=== PATIENT | female | born 1970 | race Caucasian/White ===

== ENCOUNTER 2017-12-03 13:24 | Inpatient (IN) | payer BC, OTHER ==
[2017-12-03 14:21] LABS: ADD MAN DIFF? NO
[2017-12-03 14:24] LABS: BASO # 0.1 x10^3/uL (0.0-0.2); BASO % 1 % (0-3); EOS # 0.1 x10^3/uL (0.0-0.7); EOS % 2 % (0-3); HEMATOCRIT 36.1 % (36.0-47.0); HEMOGLOBIN 11.6 g/dL (12.0-15.5); LYMPH # 1.9 x10^3/uL (1.0-4.8); LYMPH % 33 % (24-48); MEAN CORPUSCULAR HEMOGLOBIN 26 pg (25-35); MEAN CORPUSCULAR HGB CONC 32 g/dL (31-37); MEAN CORPUSCULAR VOLUME 82 fL (79-100); MONO # 0.5 x10^3/uL (0.0-1.1); MONO % 8 % (0-9); NEUT # 3.3 x10^3uL (1.8-7.7); NEUT % 56 % (31-73); PLATELET COUNT 211 x10^3/uL (140-400); RED BLOOD COUNT 4.43 x10^6/uL (3.50-5.40); RED CELL DISTRIBUTION WIDTH 15.2 % (11.5-14.5); WHITE BLOOD COUNT 5.8 x10^3/uL (4.0-11.0)
[2017-12-03 14:37] LABS: INR 1.1 (0.8-1.1); PROTHROMBIN TIME PATIENT 13.9 SEC (11.7-14.0)
[2017-12-03 14:40] LABS: ANION GAP 8 (6-14); BLOOD UREA NITROGEN 13 mg/dL (7-20); BUN/CREATININE RATIO 22 (6-20); CALCIUM 8.5 mg/dL (8.5-10.1); CARBON DIOXIDE 26 mmol/L (21-32); CHLORIDE 104 mmol/L (98-107); CREATININE 0.6 mg/dL (0.6-1.0); GFR 106.3; GLUCOSE 87 mg/dL (70-99); POTASSIUM 4.1 mmol/L (3.5-5.1); SODIUM 138 mmol/L (136-145)
[2017-12-03 14:47] LABS: TROPONINI < 0.017 ng/mL (0.000-0.055)
[2017-12-03] MEDS: ASPIRIN CHEWABLE 81 MG TABLET. PO (14:48)
[2017-12-03] MEDS: IV NORMAL SALINE 1000ML BAG 1,000 ML IV ×2 (14:48→21:18)
[2017-12-03 14:50] LABS: ALBUMIN 3.4 g/dL (3.4-5.0); ALK PHOS 77 U/L (46-116); ALT (SGPT) < 6 U/L (14-59); AST (SGOT) 22 U/L (15-37); MAGNESIUM 1.8 mg/dL (1.8-2.4); TOTAL BILIRUBIN 0.6 mg/dL (0.2-1.0); TOTAL PROTEIN 6.7 g/dL (6.4-8.2)
[2017-12-03] MEDS: NITROGLYCERIN SUBLINGUAL 0.4 MG BOTTLE OF 25. SL (14:51)
[2017-12-03 14:52] LABS: THYROID STIM HORMONE (TSH) 0.792 uIU/mL (0.358-3.74)
[2017-12-03 14:53] LABS: CKMB INDEX 0.9 % (0-4); CKMB MASS < 0.5 ng/mL (0.0-3.6); CREATINE KINASE 57 U/L (26-192)
[2017-12-03 14:53] LABS: NT-PRO BNP 232 pg/mL (0-124)
[2017-12-03 14:55] LABS: BILIRUBIN,URINE NEGATIVE (NEG); CLARITY,URINE CLEAR; COLOR,URINE YELLOW; GLUCOSE,URINE NEGATIVE (NEG); NITRITE,URINE NEGATIVE (NEG); PH,URINE 6.5; PROTEIN,URINE NEGATIVE (NEG-TRACE); UROBILINOGEN,URINE 0.2 mg/dL (0.2 mg/dL)
[2017-12-03 15:07] LABS: BARBITURATES NEG (NEG); BENZODIAZEPINES NEG (NEG); CANNABINOIDS NEG (NEG); COCAINE NEG (NEG); METHADONE NEG (NEG); OPIATES NEG (NEG); PHENCYCLIDINE NEG (NEG)
[2017-12-03 15:19] LABS: AMPHETAMINE/METHAMPHETAMINE NEG (NEG); ETHANOL, URINE NEG (NEG)
[2017-12-03 15:20] LABS: BACTERIA,URINE 0 /HPF (0-FEW); RBC,URINE OCC /HPF (0-2); SQUAMOUS EPITHELIAL CELL,UR MOD /LPF; WBC,URINE RARE /HPF (0-4)
[2017-12-03] MEDS ORDERED: IV NORMAL SALINE 1000ML BAG 1,000 ML IV (15:26)
[2017-12-03] MEDS ORDERED: ONDANSETRON PF 4 MG/2 ML VIAL. IV (15:30)
[2017-12-03 18:55] LABS: TROPONINI < 0.017 ng/mL (0.000-0.055)
[2017-12-03] MEDS ORDERED: ALBUTEROL SULFATE 2.5 MG/3 ML NEBU. NEB (20:30)
[2017-12-03 20:43] LABS: POC GLUCOSE 100 mg/dL (70-99)
[2017-12-03] MEDS: ACETAMINOPHEN 325 MG TABLET. PO (21:17)
[2017-12-03 22:39] LABS: TROPONINI < 0.017 ng/mL (0.000-0.055)
[2017-12-04] MEDS: IV NORMAL SALINE 1000ML BAG 1,000 ML IV ×2 (05:44→16:30)
[2017-12-04 05:57] LABS: ADD MAN DIFF? NO
[2017-12-04 06:00] LABS: BASO % 1 % (0-3); EOS # 0.1 x10^3/uL (0.0-0.7); EOS % 2 % (0-3); HEMATOCRIT 33.5 % (36.0-47.0); HEMOGLOBIN 10.8 g/dL (12.0-15.5); LYMPH # 1.7 x10^3/uL (1.0-4.8); LYMPH % 41 % (24-48); MEAN CORPUSCULAR HEMOGLOBIN 26 pg (25-35); MEAN CORPUSCULAR HGB CONC 32 g/dL (31-37); MEAN CORPUSCULAR VOLUME 82 fL (79-100); MONO # 0.3 x10^3/uL (0.0-1.1); MONO % 8 % (0-9); NEUT % 48 % (31-73); PLATELET COUNT 182 x10^3/uL (140-400); RED BLOOD COUNT 4.11 x10^6/uL (3.50-5.40); RED CELL DISTRIBUTION WIDTH 15.4 % (11.5-14.5); WHITE BLOOD COUNT 4.2 x10^3/uL (4.0-11.0)
[2017-12-04 06:30] LABS: ANION GAP 7 (6-14); BLOOD UREA NITROGEN 9 mg/dL (7-20); CALCIUM 8.2 mg/dL (8.5-10.1); CARBON DIOXIDE 24 mmol/L (21-32); CHLORIDE 110 mmol/L (98-107); CREATININE 0.6 mg/dL (0.6-1.0); GFR 106.3; GLUCOSE 85 mg/dL (70-99); POTASSIUM 3.8 mmol/L (3.5-5.1); SODIUM 141 mmol/L (136-145)
[2017-12-04 07:34] LABS: MONONUCLEOSIS PATIENT NEGATIVE (NEGATIVE); NEGATIVE OBC MONO NEG; POSITIVE OBC MONO POS
[2017-12-04] MEDS: BUDESONIDE 0.5 MG/2 ML NEBU. NEB ×2 (08:09→20:22)
[2017-12-04] MEDS: ERGOCALCIFEROL (VITAMIN D2) 50,000 UNIT CAPSULE. PO (09:00)
[2017-12-04] MEDS: CETIRIZINE HCL 10 MG TABLET. PO (09:00)
[2017-12-04 11:21] LABS: CHOLESTEROL 112 mg/dL (0-200); HDLC 52 mg/dL (40-60); LDLC 49 mg/dL (0-100); NON-HDL CHOLESTEROL 60 mg/dL (0-129); TRIGLYCERIDES 54 mg/dL (0-150); VLDLC 11 mg/dL (0-40)
[2017-12-04 11:22] LABS: CHOLESTEROL/HDL RATIO 2.2
[2017-12-04 11:41] LABS: POC GLUCOSE 80 mg/dL (70-99)
[2017-12-05] MEDS: IV NORMAL SALINE 1000ML BAG 1,000 ML IV ×2 (02:30→11:16)
[2017-12-05] MEDS: BUDESONIDE 0.5 MG/2 ML NEBU. NEB (08:56)
[2017-12-05] MEDS: CETIRIZINE HCL 10 MG TABLET. PO (09:15)
== END 2017-12-05 12:30 | disposition home or self-care (01) | DRG 313 ==
LOC: ER 13:24 → 5 NORTH 15:18
DX: R07.89 Other chest pain (principal); D64.9 Anemia, unspecified; J45.909 Unspecified asthma, uncomplicated; F41.9 Anxiety disorder, unspecified; M19.90 Unspecified osteoarthritis, unspecified site; Z90.49 Acquired absence of other specified parts of digestive tract; Z87.442 Personal history of urinary calculi; Z82.49 Family history of ischemic heart disease and other diseases of the circulatory system; Z88.0 Allergy status to penicillin
CPT/HCPCS: 36415; 71045; 78452; 80048; 80053; 80061; 80307; 81001; 82553; 82962; 83735; 83880; 84443; 84484; 85025; 85610; 86308; 93005; 93017; 93306; 94640; 94760; 96360; 96361; 96374; 96376; 99285; 99285-25; A9500; J7030; J7626

== ENCOUNTER 2019-01-19 02:23 | Inpatient (IN) | payer BC, OTHER ==
[~2019-01-19] VITALS: Ht 170.2 cm; Wt 84.1 kg
[2019-01-19] VITALS (7 sets, daily range): BP systolic 90–110; BP diastolic 41–52
[~2019-01-19 02:23] MED LIST: CETI10TA22 PO
[2019-01-19] MEDS ORDERED: oxyCODONE/APAP 5/325 1 TAB TABLET PO PRN (03:15)
[2019-01-19] MEDS: fentaNYL PF VIAL 100 MCG/2 ML VIAL IV PRN ×3 (03:31→11:24)
[2019-01-19] MEDS ORDERED: VANCOMYCIN PER PHARMACY MC PRN (09:00)
[2019-01-19] MEDS ORDERED: cefTRIAXone IV Push 2 GM VIAL. IVP SCH ×2 (09:00→21:00)
--- NOTE | 2019-01-19 09:23 | PDOC1 ---
History and Physical Date of Admission Date of Admission DATE: 01/19/19 TIME: 09:18 Identification/Chief Complaint Chief Complaint headache Source Source: Chart review, Patient History of Present Illness History of Present Illness Patient awoke yesterday AM with a severe headache. "splitting" to right side of head,. no aura, not throbbing pain has persisted, a little btter with IV pain meds only, migrane med in ER at [place] did not improve And LP was done in the ER, and some white cells were found, and rocephin and vanc were given before transfer. Patient this AM, has photophobia and phonophobia, ongoing severe headache 05/27 with persistent severe pain. she has otherwise felt well until yesterday AM Past Medical History Cardiovascular: No pertinent hx Pulmonary: No pertinent hx Heme/Onc: No pertinent hx Psych: No pertinent hx Infectious disease: No pertinent hx Endocrine: No pertinent hx Past Surgical History Past Surgical History: Arthroscopy, Cholecystectomy, , Other Family History Family History: Coronary Artery Disease, Other Family History: Grandparents Social History Smoke: No ALCOHOL: none Drugs: None Current Medications Current Medications Current Medications Fentanyl Citrate (Fentanyl 2ml Vial) 50 mcg PRN Q2HR PRN IV PAIN Last administered on 01/19/19at 06:35; Start 01/19/19 at 03:15 Oxycodone/ Acetaminophen (Percocet 5/325) 1 tab PRN Q4HRS PRN PO PAIN Last administered on 01/19/19at 05:18; Start 01/19/19 at 03:15 Cetirizine HCl (ZyrTEC) 10 mg DAILY PO ; Start 01/19/19 at 09:00 Ceftriaxone Sodium (Rocephin) 2 gm Q24H IVP ; Start 01/19/19 at 09:00 Vancomycin HCl (Vanco Per Pharmacy) 1 each PRN DAILY PRN MC SEE COMMENTS; Start 01/19/19 at 09:00 Vancomycin HCl 2 gm/Sodium Chloride 500 ml @ 250 mls/hr 1X ONCE IV ; Start 01/19/19 at 10:00; Stop 01/19/19 at 11:59 Active Scripts Active Reported Zyrtec (Cetirizine Hcl) 10 Mg Tablet 1 Tab PO DAILY Allergies Allergies: Coded Allergies: Penicillins (Verified Allergy, Intermediate, 12/05/17) ROS Review of System no headaches before yesterday General: No: Chills, Night Sweats, Fatigue, Malaise, Appetite, Other PSYCHOLOGICAL ROS: No: Anxiety, Behavioral Disorder, Concentration difficultie, Decreased libido, Depression, Disorientation, Hallucinations, Hostility, Irritablity, Memory difficulties, Mood Swings, Obsessive thoughts, Physical abuse, Sexual abuse, Sleep disturbances, Suicidal ideation, Other Eyes: No Blurry vision, No Decreased vision, No Double vision, No Dry eyes, No Excessive tearing, No Eye Pain, No Itchy Eyes, No Loss of vision, No Photophobia, No Scotomata, No Uses contacts, No Uses glasses, No Other HEENT: No: Heacaches, Visual Changes, Hearing change, Nasal congestion, Nasal discharge, Oral lesions, Sinus pain, Sore Throat, Epistaxis, Sneezing, Snoring, Tinnitus, Vertigo, Vocal changes, Other Respiratory: No: Cough, Hemoptysis, Orthopnea, Pleuritic Pain, Shortness of breath, SOB with excertion, Sputum Changes, Stridor, Tachypnea, Wheezing, Other Cardiovascular: No Chest Pain, No Palpitations, No Orthopnea, No Paroxysmal Noc. Dyspnea, No Edema, No Lt Headedness, No Other Gastrointestinal: No Nausea, No Vomiting, No Abdominal Pain, No Diarrhea, No Constipation, No Melena, No Hematochezia, No Other Genitourinary: No Dysuria, No Frequency, No Incontinence, No Hematuria, No Retention, No Discharge, No Urgency, No Pain, No Flank Pain, No Other, No , No , No , No , No , No , No Musculoskeletal: No Gait Disturbance, No Joint Pain, No Joint Stiffness, No Joint Swelling, No Muscle Pain, No Muscular Weakness, No Pain In:, No Swelling In:, No Other Neurological: No Behavorial Changes, No Bowel/Bladder ControlChng, No Confusion, No Dizziness, No Gait Disturbance, No Headaches, No Impaired Coord/balance, No Memory Loss, No Numbness/Tingling, No Seizures, No Speech Problems, No Tremors, No Visual Changes, No Weakness, No Other Skin: No Dry Skin, No Eczema, No Hair Changes, No Lumps, No Mole Changes, No Mottling, No Nail Changes, No Pruritus, No Rash, No Skin Lesion Changes, No Other, No Acne Physical Exam General: Alert, Oriented X3, Cooperative, mild distress, moderate distress HEENT: EOMI Lungs: Normal air movement Heart: S1S2, RRR Abdomen: Normal bowel sounds, Soft Rectal Exam: not examined Extremities: No edema Skin: No breakdown Neuro: Sensation intact, Cranial nerves 3-12 NL Psych/Mental Status: Mood NL Vitals Vitals Vital Signs Date Time Temp Pulse Resp B/P (MAP) Pulse Ox O2 Delivery O2 Flow Rate FiO2 01/19/19 07:07 95 Room Air 01/19/19 07:00 97.5 61 16 93/45 (61) 97.5 VTE Prophylaxis Ordered VTE Prophylaxis Devices: No VTE Pharmacological Prophylaxi: No Assessment/Plan Assessment/Plan acute severe headache. antibiotics started for meningitis, but WBC count is only 4, I will continue the abx consult Neuro, acute headache THEO CAMEJO MD January 19, 2019 09:23
[2019-01-19] MEDS ORDERED: VANCOMYCIN 2 GM in IV NORMAL SALINE 500ML BAG 500 ML IV ONE (10:00)
[2019-01-19] MEDS: oxyCODONE/APAP 10/325 1 TAB TABLET PO PRN ×2 (10:02→15:25)
[2019-01-19] MEDS: CETIRIZINE HCL 10 MG TABLET. PO SCH (10:02)
--- NOTE | 2019-01-19 11:39 | NUR ---
Pharmacy Vancomycin Dosing Note S:Consulted to monitor and dose vancomycin started 01/19/19. O:ADIS FIGUEROA is a 48 year old F with Meningitis . Height: 5 feet, 7 inches Weight: 85.571247 kg Lynn Body Weight: 61.60 Adjusted Body Weight: 70.96 Dosing Weight: Actual Other Antibiotics: CEFTRIAXONE 2G Q12H LABS: Last BUN: 13 Last Creatinine: 0.8 Creatinine Clearance: 94 SJ LAB mL/min Last WBC: 6.4 Last Procalcitonin: - Tmax (past 24 hours): 98.1 Microbiology: 01/19 SPINAL FLUID [facility] PENDING I/O: - Drug Levels: Last level: on at Last dose given 01/19/19 at 1000 Vancomycin Dosing: Loading Dose: 2000 mg x1 Dosing Weight: Actual Target Trough: 15-20 A: Based on: WEIGHT, CRCL~94, P: 1. Initiate Vancomycin 1250 mg IV q12h 2. Follow up Trough level on 01/20/19 at 2130 3. Pharmacy will continue to monitor, follow and adjust therapy as needed. BRISEYDA EL [facility], 01/19/19 [id number]
--- NOTE | 2019-01-19 12:27 | PDOC ---
Infectious Disease Note Vital Sign Vital Signs Vital Signs Date Time Temp Pulse Resp B/P (MAP) Pulse Ox O2 Delivery O2 Flow Rate FiO2 01/19/19 11:24 95 Room Air 01/19/19 07:00 97.5 61 16 93/45 (61) 97.5 Objective Assessment Severe headache with photophobia -LP: CSF colorless, clear, WBC 4, glucose 57, TP 30.8. No organisms Sphenoid sinus disease on CT PCN allergy, reaction unknown, occurred in infancy Asthma Plan Plan of Care CSF not consistent with meningitis. Prior to transfer she received dose vanc, Rocephin, acyclovir, methylprednisone and ketorolac Cryptococcus, strep pneumo UR Ag, viral cx, aerobic cx, blood and fungal cx pending from [facility] Neurology consulted. Thank you [phone] Patient seen and examined, Chart , Labs , Micro and Radiology report reviewed I agree with above assessment and plan as formulated with [employer]. D/W [employer]OR Will DC antibiotics Neurology plans noted for MRI Brain Monitor off antibiotics closely CHAD MENSAH APRN January 19, 2019 12:27 POOJA VICTOR MD January 19, 2019 15:48
--- NOTE | 2019-01-19 13:47 | CONS ---
DATE OF CONSULTATION: 01/19/2019 Carlos Monroe APRN, dictating for Richard Victor M.D., Infectious Disease. REFERRING PHYSICIAN: Vilma Mckeon M.D. REASON FOR CONSULTATION: Meningitis. HISTORY OF PRESENT ILLNESS: This patient is a 48-year-old female with a history of asthma, who woke up about 3:00 in the morning with severe frontal headache that persisted throughout the day. She took about 6 Excedrin Migraine tablets without relief. She felt dizzy and weak. She was initially seen at [facility] ER. A CT head and maxillary facial scan revealed mild sphenoid sinus mucosal thickening; mild leftward nasal septal deviation; no mass effect, hemorrhage, or midline shift. She underwent a lumbar puncture. CSF was colorless and clear with wbc's 4, RBCs 12, glucose 57, and total protein 30.8. No organisms were seen on Gram stain. Culture is pending. Prior to transferring to [place], she was dosed with vancomycin, ceftriaxone, acyclovir, methylprednisolone and Ketorolac. The patient complains of ongoing headache, mostly frontal area and to the left. She says bright lights and loud noises are bothersome. She denies fevers, chills or body aches. Denies nausea or vomiting. Her appetite remains good. Denies history of migraines. Denies recent travel or ill contacts. Denies confusion down. PAST MEDICAL HISTORY: Asthma, angina, kidney stones and back pain. PAST SURGICAL HISTORY: Cholecystectomy, section, and laminectomy. SOCIAL HISTORY: The patient is . Nonsmoker. FAMILY HISTORY: Coronary artery disease. ALLERGIES: PENICILLIN, reaction unknown. Occurred in infancy. MEDICATIONS: Vancomycin and ceftriaxone. A one-time dose of methylprednisolone and acyclovir. Other medications are available and have been reviewed on the NOV. REVIEW OF SYSTEMS: As per HPI, otherwise all other review of systems are negative. PHYSICAL EXAMINATION: VITAL SIGNS: Temperature is 97.5, blood pressure 93/45, heart rate 61, respiratory rate 16 and pulse oximetry 95% on room air. BMI is 29. HEENT: Pupils equally round, reactive. Normal conjunctivae. Oral cavity: Pharynx pink and moist. Mild frontal and ethmoid sinus tenderness. NECK: Supple. No nuchal rigidity. LUNGS: Clear to auscultation. HEART: S1 and S2. ABDOMEN: Soft and nontender with bowel sounds present. EXTREMITIES: No gross edema or cyanosis. SKIN: Warm without generalized rash. NEUROLOGIC: Alert and oriented x 3. Moves all extremities. LABORATORY DATA: From 01/18, WBC 6.4, hemoglobin 10.2, platelets 304,000. Sodium is 141, potassium 3.8, creatinine 0.8, BUN 13, and glucose 90. Creatinine kinase is 50. Troponin is less than 0.017. BNP is 145. Urine toxicology is negative. Urinalysis is unremarkable for infection. CSF per HPI. INR is 1.1. Head/maxillary CT per HPI. Chest x-ray showed no acute pulmonary findings. Lumbar spine x-ray showed postsurgical changes. No acute findings. IMPRESSION: 1. Severe headache with photophobia.CSF negative for meningitis 2. Sphenoid sinus disease on CT scan.No symptoms 3. 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 4. Asthma. 5. H/o seasonal allergies on zyrtec for a couple of years 6. H/O recent UTI ,treated with 2 weeks of po antibiotics, could not recall the name. No symptoms of . PLAN: Will DC antibiotics as CSF not consistent with meningitis. Monitor off antibiotics Neurology has been consulted. Thank you, Dr. Mckeon for asking us to participate in this patient's care. Should you have further questions or concerns, please call. RICHARD VICTOR MD DR: JOHNATHAN/tamiko JOB#: [id number] / [id number] KARI
--- NOTE | 2019-01-19 15:06 | PDOC2 ---
NEUROLOGY CONSULT Date of Admission Date of Admission DATE: 01/19/19 TIME: 15:05 Reason for Consult Reason for Consult: Severe headache Referring Physician Referring Physician: Dr. Mckeon Source Source: Chart review, Patient History of Present Illness History of Present Illness The patient is a 48-year-old right-handed female who was awakened early yesterday morning with the worst headache of her life. 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 At [facility] she did have a lumbar puncture as reviewed below. The patient denies prior headache, head injury, stroke, seizure, fevers, chills, numbness, weakness, tinnitus, hearing loss, diplopia, dysphagia, or dysarthria. Headache is still 8/10. Past Medical History Cardiovascular: Other (negative chest pain workup 12/02) Pulmonary: Asthma Musculoskeletal: low back pain Renal/: Other (kidney stones) Past Surgical History Past Surgical History: Cholecystectomy, Other (lumbar laminectomy) Family History Family History: Other (negative for headaches) Social History Social History , no alcohol or tobacco, Seb at [facility] Current Medications Current Medications Current Medications Fentanyl Citrate (Fentanyl 2ml Vial) 50 mcg PRN Q2HR PRN IV PAIN Last administered on 01/19/19at 11:24; Start 01/19/19 at 03:15 Oxycodone/ Acetaminophen (Percocet 5/325) 1 tab PRN Q4HRS PRN PO PAIN Last administered on 01/19/19 05:18; Start 01/19/19 at 03:15; Stop 01/19/19 at 09:24; Status DC Cetirizine HCl (ZyrTEC) 10 mg DAILY PO Last administered on 01/19/19 10:02; Start 01/19/19 at 09:00 Ceftriaxone Sodium (Rocephin) 2 gm Q24H IVP Last administered on 01/19/19 10:02; Start 01/19/19 at 09:00; Stop 01/19/19 at 11:09; Status DC Vancomycin HCl (Vanco Per Pharmacy) 1 each PRN DAILY PRN MC SEE COMMENTS Last administered on 01/19/19at 11:36; Start 01/19/19 at 09:00 Vancomycin HCl 2 gm/Sodium Chloride 500 ml @ 250 mls/hr 1X ONCE IV Last administered on 01/19/19at 10:03; Start 01/19/19 at 10:00; Stop 01/19/19 at 11:59; Status DC Oxycodone/ Acetaminophen (Percocet 10/325) 1 tab PRN Q4HRS PRN PO MODERATE TO SEVERE PAIN Last administered on 01/19/19at 10:02; Start 01/19/19 at 09:30 Ceftriaxone Sodium (Rocephin) 2 gm Q12HR IVP ; Start 01/19/19 at 21:00 Vancomycin HCl 1.25 gm/Sodium Chloride 250 ml @ 167 mls/hr Q12H IV ; Start 01/19/19 at 22:00 Vancomycin HCl (Vancomycin Trough Level) 1 each 1X ONCE MC ; Start 01/20/19 at 21:30; Stop 01/20/19 at 21:31 Active Scripts Active Reported Zyrtec (Cetirizine Hcl) 10 Mg Tablet 1 Tab PO DAILY Allergies Allergies: Coded Allergies: Penicillins (Verified Allergy, Intermediate, 12/05/17) ROS Review of System Negative for fever, chills, weight loss, shortness of breath, chest pain, indigestion, hematochezia, melena, and dysuria. Full 14-point review of systems is negative. Physical Exam Physical Examination General: Well-developed, well-nourished white female in no acute distress HEENT: Normocephalic andatraumatic. Tympanic membranes clear.Temporal arteriespulsatile and nontender.Fundoscopic exam unremarkable Neck: Supple without bruit, no meningismus Musculoskeletal: Stability:see neurologic. Gait exam:see neurologic. Tone:see neurologic.Strength:see neurologic. Neurological: Mental Status:intact, orientation, memory, attention span/concentration, language, fund of knowledge normal. Cranial Nerves:Pupils equal and reactive to light, extraocular movements areintact, visual lozano are full to confrontation. Facial sensation is normal. There is no facial asymmetry. Vestibulo-ocular reflex is intact. Palate elevates and tongue protrudes in midline. All other cranial related problems are negative except as mentioned before.Reflexes:2+ and symmetric with flexor plantar responses. Motor:5/5 strength with normal tone and bulk. Coordination:Finger-nose finger and [id number] testing are normal. Rapid alternating movements and fine finger movements are intact. Gait:Normal, including tandem. Sensory:Normal pinprick, vibration, light touch, proprioception. Vitals VITALS Vital Signs Date Time Temp Pulse Resp B/P (MAP) Pulse Ox O2 Delivery O2 Flow Rate FiO2 01/19/19 11:54 95 Room Air 01/19/19 11:00 97.8 66 18 90/48 (62) 97.8 Labs Labs [facility] labs: CSF: WBCs 4, RBCs 12, glucose 57, and total protein 30.8. ESR 18 Images Images Head and maxillofacial bone CT without contrast. Head: There is no hemorrhage. There is no mass effect or midline shift. The lazcano-white matter differential pattern is intact. No suspicious calvarial lesion is seen. The mastoid air cells are clear. Maxillofacial bones: There is and mild sphenoid sinus mucosal thickening. The ostiomeatal units are patent. There is mild leftward nasal septal deviation. There is no sinus opacification or air-fluid level. There is no abnormal sinus wall thickening or erosion. The orbits are unremarkable. The visualized portions of the cervical spine demonstrate no acute or suspicious osseous lesion. IMPRESSION: 1. No acute intracranial finding. 2. Mild sphenoid sinus disease Three view lumbosacral spine There has been prior fusion of L4-S1 with left-sided protrusion posterior fusion rods. There is ray cages at L4-5 and L5-S1. There are 4 threaded screws to the right sacroiliac. The vertebral bodies are aligned. There is no loss of vertebral body stature. Intervertebral disc heights are preserved. Impression: Postsurgical changes. No acute findings. Assessment/Plan Assessment/Plan Impression: New onset migraine, I'll admit this is unusual at age 48, rule out intracranial aneurysmal bleed, this is unlikely with a lumbar puncture, which incidentally is negative for meningitis. 4 white blood cells is certainly within the normal range. Recommendations: Discontinue contact precautions Discontinue antibiotics but defer to infectious disease Trial of sumatriptan, discussed side effects CT angiogram today MRI of the brain and MR venogram tomorrow Supportive care MARCY VALLECILLO MD January 19, 2019 15:06
[2019-01-19] MEDS ORDERED: SUMAtriptan SUCC 6 MG/0.5 ML VIAL. SQ ONE (15:15)
[2019-01-19] MEDS ORDERED: IOHEXOL 300 MG/ML 100ML VIAL. IV ONE (18:00)
[2019-01-19] MEDS ORDERED: CONTRAST GIVEN. MC PRN (18:00)
--- NOTE | 2019-01-19 18:46 | RAD ---
CT angiogram head and neck CLINICAL HISTORY: Worst headache of life COMPARISON: None available. TECHNIQUE: Pre contrast CT scan of the head and neck followed by 1.0mm contiguous cuts after the administration of contrast material for CT angiography Multiplanar reconstructed images were obtained including 3D reconstructed images performed on an independent work station. Stenosis if present in the carotid arteries were measured using NASCET criteria. PQRS compliance statement - One or more of the following individualized dose reduction techniques were utilized for this study: 1. Automated exposure control 2. Adjustment of the mA and/or kV according to patient size 3. Use of iterative reconstruction technique FINDINGS: CTA of the intracranial circulation reveals normal appearing distal internal carotid arteries including the distal cervical, petrous, cavernous and supraclinoid portions. The anterior cerebral arteries are well visualized and without evidence of stenosis or occlusion. The middle cerebral arteries are well visualized and without evidence of stenosis or occlusion. The posterior cerebral arteries are well visualized and without evidence of stenosis or occlusion. The vertebral basilar system is normal with no evidence of stenosis or occlusion. In the neck, the origins of the great vessels are unremarkable. The common carotid arteries, bilaterally are normal with no evidence of significant stenosis or occlusion. The internal carotid arteries are normal bilaterally with no evidence of stenosis. The vertebral arteries in the neck are well visualized bilaterally and unremarkable. IMPRESSION: No evidence for high-grade stenosis within the intracranial circulation or the extracranial carotid or vertebral arteries. Electronically signed by: Royce Duncan MD (01/19/2019 6:44 PM) [facility]
[2019-01-19] MEDS ORDERED: VANCOMYCIN 1.25 GM in IV NORMAL SALINE 250ML 250 ML IV SCH (22:00)
[2019-01-20 03:50] VITALS: BP 101/45
[2019-01-20] MEDS: oxyCODONE/APAP 10/325 1 TAB TABLET PO PRN ×2 (04:30→12:57)
[2019-01-20 04:34] LABS: BASO # 0.1 x10^3/uL (0.0-0.2); BASO % 1 % (0-3); EOS # 0.1 x10^3/uL (0.0-0.7); EOS % 2 % (0-3); HEMATOCRIT 27.6 % (36.0-47.0); HEMOGLOBIN 8.5 g/dL (12.0-15.5); LYMPH # 2.2 x10^3/uL (1.0-4.8); LYMPH % 44 % (24-48); MEAN CORPUSCULAR HEMOGLOBIN 24 pg (25-35); MEAN CORPUSCULAR HGB CONC 31 g/dL (31-37); MEAN CORPUSCULAR VOLUME 77 fL (79-100); MONO # 0.4 x10^3/uL (0.0-1.1); MONO % 8 % (0-9); NEUT # 2.3 x10^3uL (1.8-7.7); NEUT % 45 % (31-73); PLATELET COUNT 234 x10^3/uL (140-400); RED CELL DISTRIBUTION WIDTH 15.6 % (11.5-14.5); WHITE BLOOD COUNT 5.1 x10^3/uL (4.0-11.0)
[2019-01-20 05:38] LABS: ALBUMIN 2.9 g/dL (3.4-5.0); CALCIUM 8.7 mg/dL (8.5-10.1); CREATININE 0.7 mg/dL (0.6-1.0); GFR 88.6; POTASSIUM 4.2 mmol/L (3.5-5.1); TOTAL BILIRUBIN 0.1 mg/dL (0.2-1.0); TOTAL PROTEIN 5.7 g/dL (6.4-8.2)
[2019-01-20 07:00] VITALS: BP 114/61
[2019-01-20] MEDS: CETIRIZINE HCL 10 MG TABLET. PO SCH (08:24)
[2019-01-20] MEDS ORDERED: SUMAtriptan SUCCINATE 100 MG TABLET PO PRN (09:15)
[2019-01-20 11:00] VITALS: BP 110/53
[2019-01-20] MEDS ORDERED: OXYC1TAB15 PO (11:50)
[2019-01-20] MEDS ORDERED: SUMA100T3 PO (11:50)
--- NOTE | 2019-01-20 11:52 | PDOC3 ---
Discharge Summary Visit Information Date of Admission: January 19, 2019 Date of Discharge: January 20, 2019 Admitting Diagnosis Comment: New onset migraine Brief Hospital Course Allergies Allergies Coded Allergies Type Severity Reaction Last Updated Verified Penicillins Allergy Intermediate 12/05/17 Yes Vital Signs Vital Signs Date Time Temp Pulse Resp B/P (MAP) Pulse Ox O2 Delivery O2 Flow Rate FiO2 01/20/19 11:00 97.8 75 18 110/53 (72) 96 Room Air 97.8 Lab Results Laboratory Tests Test 01/20/19 04:05 White Blood Count 5.1 x10^3/uL (4.0-11.0) Red Blood Count 3.60 x10^6/uL (3.50-5.40) Hemoglobin 8.5 g/dL (12.0-15.5) Hematocrit 27.6 % (36.0-47.0) Mean Corpuscular Volume 77 fL (79-100) Mean Corpuscular Hemoglobin 24 pg (25-35) Mean Corpuscular Hemoglobin Concent 31 g/dL (31-37) Red Cell Distribution Width 15.6 % (11.5-14.5) Platelet Count 234 x10^3/uL (140-400) Neutrophils (%) (Auto) 45 % (31-73) Lymphocytes (%) (Auto) 44 % (24-48) Monocytes (%) (Auto) 8 % (0-9) Eosinophils (%) (Auto) 2 % (0-3) Basophils (%) (Auto) 1 % (0-3) Neutrophils # (Auto) 2.3 x10^3uL (1.8-7.7) Lymphocytes # (Auto) 2.2 x10^3/uL (1.0-4.8) Monocytes # (Auto) 0.4 x10^3/uL (0.0-1.1) Eosinophils # (Auto) 0.1 x10^3/uL (0.0-0.7) Basophils # (Auto) 0.1 x10^3/uL (0.0-0.2) Sodium Level 142 mmol/L (136-145) Potassium Level 4.2 mmol/L (3.5-5.1) Chloride Level 108 mmol/L (98-107) Carbon Dioxide Level 25 mmol/L (21-32) Anion Gap 9 (6-14) Blood Urea Nitrogen 14 mg/dL (7-20) Creatinine 0.7 mg/dL (0.6-1.0) Estimated GFR (Cockcroft-Gault) 88.6 BUN/Creatinine Ratio 20 (6-20) Glucose Level 98 mg/dL (70-99) Calcium Level 8.7 mg/dL (8.5-10.1) Total Bilirubin 0.1 mg/dL (0.2-1.0) Aspartate Amino Transf (AST/SGOT) 21 U/L (15-37) Alanine Aminotransferase (ALT/SGPT) 16 U/L (14-59) Alkaline Phosphatase 68 U/L (46-116) Total Protein 5.7 g/dL (6.4-8.2) Albumin 2.9 g/dL (3.4-5.0) Albumin/Globulin Ratio 1.0 (1.0-1.7) Laboratory Tests Test 01/20/19 04:05 White Blood Count 5.1 x10^3/uL (4.0-11.0) Red Blood Count 3.60 x10^6/uL (3.50-5.40) Hemoglobin 8.5 g/dL (12.0-15.5) Hematocrit 27.6 % (36.0-47.0) Mean Corpuscular Volume 77 fL (79-100) Mean Corpuscular Hemoglobin 24 pg (25-35) Mean Corpuscular Hemoglobin Concent 31 g/dL (31-37) Red Cell Distribution Width 15.6 % (11.5-14.5) Platelet Count 234 x10^3/uL (140-400) Neutrophils (%) (Auto) 45 % (31-73) Lymphocytes (%) (Auto) 44 % (24-48) Monocytes (%) (Auto) 8 % (0-9) Eosinophils (%) (Auto) 2 % (0-3) Basophils (%) (Auto) 1 % (0-3) Neutrophils # (Auto) 2.3 x10^3uL (1.8-7.7) Lymphocytes # (Auto) 2.2 x10^3/uL (1.0-4.8) Monocytes # (Auto) 0.4 x10^3/uL (0.0-1.1) Eosinophils # (Auto) 0.1 x10^3/uL (0.0-0.7) Basophils # (Auto) 0.1 x10^3/uL (0.0-0.2) Sodium Level 142 mmol/L (136-145) Potassium Level 4.2 mmol/L (3.5-5.1) Chloride Level 108 mmol/L (98-107) Carbon Dioxide Level 25 mmol/L (21-32) Anion Gap 9 (6-14) Blood Urea Nitrogen 14 mg/dL (7-20) Creatinine 0.7 mg/dL (0.6-1.0) Estimated GFR (Cockcroft-Gault) 88.6 BUN/Creatinine Ratio 20 (6-20) Glucose Level 98 mg/dL (70-99) Calcium Level 8.7 mg/dL (8.5-10.1) Total Bilirubin 0.1 mg/dL (0.2-1.0) Aspartate Amino Transf (AST/SGOT) 21 U/L (15-37) Alanine Aminotransferase (ALT/SGPT) 16 U/L (14-59) Alkaline Phosphatase 68 U/L (46-116) Total Protein 5.7 g/dL (6.4-8.2) Albumin 2.9 g/dL (3.4-5.0) Albumin/Globulin Ratio 1.0 (1.0-1.7) Brief Hospital Course Ms. Acevedo is a 48 old female who only takes cetirizine at home, came in for severe migraine headaches. Got almost 100% relief with Imitrex subcutaneous 601. Comanage with neurology. LP is negative. MRI is pending but if that is negative will go home on Imitrex 100 every 2 when necessary and I have provided Rx. Also some 20 pills of Percocet. Neuro exam within normal Consult ID, neurology Procedures performed LP-negative for meningitis Discharge Information Condition at Discharge: Improved Follow Up: Weeks (neurology 4 weeks ) Disposition/Orders: D/C to Home Scheduled Cetirizine Hcl (Zyrtec) 10 Mg Tablet, 1 TAB PO DAILY, #30 Ref 2 (Reported) Entered as Reported by: BESSY ROD on 12/03/17 5471 Last Action: Continued on 01/19/19309 by Sonja Negrete RN Scheduled PRN Oxycodone/Apap 5-325 (Percocet 5-325 Mg Tablet ) 1 Each Tablet, 1 TAB PO PRN Q6HRS PRN for PAIN, #20 Ref 0 Prescribed by: SOPHIA ASHBY on 01/20/191149 Sumatriptan Succinate (Imitrex) 100 Mg Tablet, 100 MG PO PRN Q2HR PRN for MIGRAINE HEADACHE MDD 1, #60 Prescribed by: SOPHIA ASHBY on 01/20/19 115 SOPHIA ASHBY MD January 20, 2019 11:52
--- NOTE | 2019-01-20 12:11 | PDOC ---
PROGRESS NOTES Assessment New onset migraine, excellent response to sumatriptan Plan I gave her a prescription for oral sumatriptan, discussed side effects Await MRI of the brain and MR venogram Okay for discharge these are negative. Follow up with me in 4-6 weeks if headaches persist. Subjective Dramatic and nearly complete relief of headache with sumatriptan injection Objective Vital Signs Date Time Temp Pulse Resp B/P (MAP) Pulse Ox O2 Delivery O2 Flow Rate FiO2 01/20/19 11:00 97.8 75 18 110/53 (72) 96 Room Air 97.8 Intake and Output 01/20/19 07:00 Intake Total 1220 ml Balance 1220 ml Intake Oral 1220 ml # Voids 3 PHYSICAL EXAM Alert. Oriented to time, place and person. PERRL. EOMI. CN: no focal findings. Muscle tone: normal. Muscle strength:5/5 DTR: 2+ Plantar reflex: flexor Gait: normal. Sensory exam: no abnormal findings. No cerebellar signs elicited. Review of Relevant I have reviewed the following items stephanie (where applicable) has been applied. Labs Laboratory Tests Test 01/20/19 04:05 White Blood Count 5.1 x10^3/uL (4.0-11.0) Red Blood Count 3.60 x10^6/uL (3.50-5.40) Hemoglobin 8.5 g/dL (12.0-15.5) Hematocrit 27.6 % (36.0-47.0) Mean Corpuscular Volume 77 fL (79-100) Mean Corpuscular Hemoglobin 24 pg (25-35) Mean Corpuscular Hemoglobin Concent 31 g/dL (31-37) Red Cell Distribution Width 15.6 % (11.5-14.5) Platelet Count 234 x10^3/uL (140-400) Neutrophils (%) (Auto) 45 % (31-73) Lymphocytes (%) (Auto) 44 % (24-48) Monocytes (%) (Auto) 8 % (0-9) Eosinophils (%) (Auto) 2 % (0-3) Basophils (%) (Auto) 1 % (0-3) Neutrophils # (Auto) 2.3 x10^3uL (1.8-7.7) Lymphocytes # (Auto) 2.2 x10^3/uL (1.0-4.8) Monocytes # (Auto) 0.4 x10^3/uL (0.0-1.1) Eosinophils # (Auto) 0.1 x10^3/uL (0.0-0.7) Basophils # (Auto) 0.1 x10^3/uL (0.0-0.2) Sodium Level 142 mmol/L (136-145) Potassium Level 4.2 mmol/L (3.5-5.1) Chloride Level 108 mmol/L (98-107) Carbon Dioxide Level 25 mmol/L (21-32) Anion Gap 9 (6-14) Blood Urea Nitrogen 14 mg/dL (7-20) Creatinine 0.7 mg/dL (0.6-1.0) Estimated GFR (Cockcroft-Gault) 88.6 BUN/Creatinine Ratio 20 (6-20) Glucose Level 98 mg/dL (70-99) Calcium Level 8.7 mg/dL (8.5-10.1) Total Bilirubin 0.1 mg/dL (0.2-1.0) Aspartate Amino Transf (AST/SGOT) 21 U/L (15-37) Alanine Aminotransferase (ALT/SGPT) 16 U/L (14-59) Alkaline Phosphatase 68 U/L (46-116) Total Protein 5.7 g/dL (6.4-8.2) Albumin 2.9 g/dL (3.4-5.0) Albumin/Globulin Ratio 1.0 (1.0-1.7) Laboratory Tests Test 01/20/19 04:05 White Blood Count 5.1 x10^3/uL (4.0-11.0) Red Blood Count 3.60 x10^6/uL (3.50-5.40) Hemoglobin 8.5 g/dL (12.0-15.5) Hematocrit 27.6 % (36.0-47.0) Mean Corpuscular Volume 77 fL (79-100) Mean Corpuscular Hemoglobin 24 pg (25-35) Mean Corpuscular Hemoglobin Concent 31 g/dL (31-37) Red Cell Distribution Width 15.6 % (11.5-14.5) Platelet Count 234 x10^3/uL (140-400) Neutrophils (%) (Auto) 45 % (31-73) Lymphocytes (%) (Auto) 44 % (24-48) Monocytes (%) (Auto) 8 % (0-9) Eosinophils (%) (Auto) 2 % (0-3) Basophils (%) (Auto) 1 % (0-3) Neutrophils # (Auto) 2.3 x10^3uL (1.8-7.7) Lymphocytes # (Auto) 2.2 x10^3/uL (1.0-4.8) Monocytes # (Auto) 0.4 x10^3/uL (0.0-1.1) Eosinophils # (Auto) 0.1 x10^3/uL (0.0-0.7) Basophils # (Auto) 0.1 x10^3/uL (0.0-0.2) Sodium Level 142 mmol/L (136-145) Potassium Level 4.2 mmol/L (3.5-5.1) Chloride Level 108 mmol/L (98-107) Carbon Dioxide Level 25 mmol/L (21-32) Anion Gap 9 (6-14) Blood Urea Nitrogen 14 mg/dL (7-20) Creatinine 0.7 mg/dL (0.6-1.0) Estimated GFR (Cockcroft-Gault) 88.6 BUN/Creatinine Ratio 20 (6-20) Glucose Level 98 mg/dL (70-99) Calcium Level 8.7 mg/dL (8.5-10.1) Total Bilirubin 0.1 mg/dL (0.2-1.0) Aspartate Amino Transf (AST/SGOT) 21 U/L (15-37) Alanine Aminotransferase (ALT/SGPT) 16 U/L (14-59) Alkaline Phosphatase 68 U/L (46-116) Total Protein 5.7 g/dL (6.4-8.2) Albumin 2.9 g/dL (3.4-5.0) Albumin/Globulin Ratio 1.0 (1.0-1.7) Medications Current Medications Fentanyl Citrate (Fentanyl 2ml Vial) 50 mcg PRN Q2HR PRN IV PAIN Last administered on 01/19/19at 11:24; Start 01/19/19 at 03:15 Oxycodone/ Acetaminophen (Percocet 5/325) 1 tab PRN Q4HRS PRN PO PAIN Last administered on 01/19/19at 05:18; Start 01/19/19 at 03:15; Stop 01/19/19 at 09:24; Status DC Cetirizine HCl (ZyrTEC) 10 mg DAILY PO Last administered on 01/20/19at 08:24; S tart 01/19/19 at 09:00 Ceftriaxone Sodium (Rocephin) 2 gm Q24H IVP Last administered on 01/19/19at 10:02; Start 01/19/19 at 09:00; Stop 01/19/19 at 11:09; Status DC Vancomycin HCl (Vanco Per Pharmacy) 1 each PRN DAILY PRN MC SEE COMMENTS Last administered on 01/19/19at 11:36; Start 01/19/19 at 09:00; Stop 01/19/19 at 15:49; Status DC Vancomycin HCl 2 gm/Sodium Chloride 500 ml @ 250 mls/hr 1X ONCE IV Last administered on 01/19/19at 10:03; Start 01/19/19 at 10:00; Stop 01/19/19 at 15:49; Status DC Oxycodone/ Acetaminophen (Percocet 10/325) 1 tab PRN Q4HRS PRN PO MODERATE TO SEVERE PAIN Last administered on 01/20/19at 04:30; Start 01/19/19 at 09:30 Ceftriaxone Sodium (Rocephin) 2 gm Q12HR IVP ; Start 01/19/19 at 21:00; Stop 01/19/19 at 21:00; Status DC Vancomycin HCl 1.25 gm/Sodium Chloride 250 ml @ 167 mls/hr Q12H IV ; Start 01/19/19 at 22:00; Stop 01/19/19 at 22:00; Status DC Vancomycin HCl (Vancomycin Trough Level) 1 each 1X ONCE MC ; Start 01/20/19 at 21:30; Stop 01/20/19 at 21:31; Status Cancel Sumatriptan Succinate (Imitrex) 6 mg 1X ONCE SQ Last administered on 01/19/19at 15:54; Start 01/19/19 at 15:15; Stop 01/19/19 at 15:24; Status DC Iohexol (Omnipaque 300 Mg/ml) 75 ml 1X ONCE IV Last administered on 01/19/19at 18:20; Start 01/19/19 at 18:00; Stop 01/19/19 at 18:01; Status DC Info (CONTRAST GIVEN -- Rx MONITORING) 1 each PRN DAILY PRN MC SEE COMMENTS; Start 01/19/19 at 18:00; Stop 01/21/19 at 17:59 Sumatriptan Succinate (Imitrex) 100 mg PRN Q2HR PRN PO MIGRAINE HEADACHE; Start 01/20/19 at 09:15 Active Scripts Active Percocet 5-325 Mg Tablet (Oxycodone/Acetaminophen) 1 Each Tablet 1 Tab PO PRN Q6HRS PRN Imitrex (Sumatriptan Succinate) 100 Mg Tablet 100 Mg PO PRN Q2HR PRN MDD 1 Reported Zyrtec (Cetirizine Hcl) 10 Mg Tablet 1 Tab PO DAILY Vitals/I & O Vital Sign - Last 24 Hours 01/19/19 01/19/19 01/19/19 01/19/19 15:00 15:25 20:00 20:00 Temp 97.7 97.8 97.7 97.8 Pulse 76 63 Resp 18 18 B/P (MAP) 106/42 (63) 94/47 (63) Pulse Ox 96 95 97 O2 Delivery Room Air Room Air Room Air Room Air 01/19/19 01/20/19 01/20/19 01/20/19 23:45 03:50 04:30 05:30 Temp 98.1 98.1 98.1 98.1 Pulse 73 75 Resp 18 18 B/P (MAP) 110/52 (71) 101/45 (63) Pulse Ox 98 95 95 95 O2 Delivery Room Air Room Air Room Air Room Air 01/20/19 01/20/19 01/20/19 07:00 08:00 11:00 Temp 97.9 97.8 97.9 97.8 Pulse 85 75 Resp 18 18 B/P (MAP) 114/61 (78) 110/53 (72) Pulse Ox 96 96 O2 Delivery Room Air Room Air Room Air Intake and Output 01/19/19 01/19/19 01/20/19 15:00 23:00 07:00 Intake Total 360 ml 560 ml 300 ml Balance 360 ml 560 ml [address] angiogram head and neck CLINICAL HISTORY: Worst headache of life COMPARISON: None available. TECHNIQUE: Pre contrast CT scan of the head and neck followed by 1.0mm contiguous cuts after the administration of contrast material for CT angiography Multiplanar reconstructed images were obtained including 3D reconstructed images performed on an independent work station. Stenosis if present in the carotid arteries were measured using NASCET criteria. PQRS compliance statement - One or more of the following individualized dose reduction techniques were utilized for this study: 1. Automated exposure control 2. Adjustment of the mA and/or kV according to patient size 3. Use of iterative reconstruction technique FINDINGS: CTA of the intracranial circulation reveals normal appearing distal internal carotid arteries including the distal cervical, petrous, cavernous and supraclinoid portions. The anterior cerebral arteries are well visualized and without evidence of stenosis or occlusion. The middle cerebral arteries are well visualized and without evidence of stenosis or occlusion. The posterior cerebral arteries are well visualized and without evidence of stenosis or occlusion. The vertebral basilar system is normal with no evidence of stenosis or occlusion. In the neck, the origins of the great vessels are unremarkable. The common carotid arteries, bilaterally are normal with no evidence of significant stenosis or occlusion. The internal carotid arteries are normal bilaterally with no evidence of stenosis. The vertebral arteries in the neck are well visualized bilaterally and unremarkable. IMPRESSION: No evidence for high-grade stenosis within the intracranial circulation or the extracranial carotid or vertebral arteries. MARCY VALLECILLO MD January 20, 2019 12:11
--- NOTE | 2019-01-20 12:23 | RAD ---
EXAMINATION: Magnetic resonance imaging (MRI) of the brain and brainstem without contrast 01/20/2019 8:00 AM HISTORY: Severe headaches TECHNIQUE: Multiplanar multi-weighted MRI of the brain and brainstem was performed without intravenous contrast using the general brain protocol. COMPARISON: None available. FINDINGS: The scalp and calvarium are normal. The superior sagittal sinus demonstrates normal venous flow. The corpus callosum is normal in shape and signal intensity. The posterior fossa is unremarkable. The pituitary and sella are normal. The brainstem and craniocervical junction are unremarkable. There is a suspected calcified extra-axial mass along the right posterior falx measuring 11 x 5 mm which may represent dural based calcification versus calcified meningioma. Diffusion weighted images reveal no hyperintensities to suggest acute cerebral infarction. The susceptibility weighted sequences reveal no evidence of acute or chronic hemorrhage. The ventricles are normal in size and position without evidence of hydrocephalus. 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 There is moderate mucosal thickening of the left sphenoid sinus with air-fluid level. The visualized portions of the mastoids are unremarkable. The orbits appear normal. Normal flow voids are demonstrated in the carotid arteries and basilar artery. IMPRESSION: 1. No evidence for acute or subacute ischemia. 2. Moderate mucosal thickening of the left sphenoid sinus with air-fluid level. Correlate with any signs and symptoms of sinusitis. 3. There is a suspected calcified extra-axial mass along the right posterior falx measuring 11 x 5 mm which may represent dural based calcification versus calcified meningioma. 4. 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 Electronically signed by: Jewels Bach MD (01/20/2019 12:20 PM) [email or web address]
--- NOTE | 2019-01-20 12:35 | RAD ---
Magnetic resonance angiography and venography of the brain without contrast 01/20/2019 INDICATION: Severe headaches COMPARISON: CT angiography head January 19, 2019, MRI brain January 20, 2019 TECHNIQUE: Noncontrast [id number] magnetic resonance angiography and venography of the brain was performed. Maximum intensity projection images are provided. FINDINGS: There is mild irregularity involving the cavernous segments of internal carotid arteries likely secondary to mild atherosclerotic changes. Intracranial segments of internal carotid arteries are otherwise normal in course and caliber. Middle cerebral arteries are normal in course and caliber with patent sylvian branches. Anterior cerebral arteries are normal in course and caliber. Vertebral arteries are codominant. Posterior inferior cerebellar arteries are patent. Mild irregularity of the basilar artery is likely secondary to intracranial atherosclerotic changes. Anterior inferior cerebellar arteries and superior cerebellar arteries are patent. Bilateral P1 segments of the posterior cerebral arteries are present. Mild to moderate irregularity of the right posterior cerebral artery with focal moderate stenosis involving the right proximal V2 segment. There is no aneurysm, vascular malformation or high-grade stenosis/large vessel occlusion involving [place]. Superior sagittal sinus is patent. Right transverse sinus is dominant. Left transverse sinus appears hypoplastic. No definite evidence for thrombus involving the left transverse sinus. Findings are likely congenital. Left sigmoid sinus and jugular bulb appear diminutive in caliber. Straight sinus is patent. Internal cerebral veins are patent. There is focal area of decreased time of flight enhancement involving the superior sagittal sinus at the vertex which is likely flow related phenomenon as this area opacifies normally on the CTA of the head and neck.. IMPRESSION: 1. No evidence for aneurysm, some malformation or high-grade stenosis/large vessel occlusion involving the [place]. Mild to moderate intracranial atherosclerotic changes are present as detailed above. 2. No definite evidence for venous sinus thrombosis. 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 Electronically signed by: Jewels Bach MD (01/20/2019 12:33 PM) [email or web address]
--- NOTE | 2019-01-20 12:52 | PDOC ---
Infectious Disease Note Subjective Subjective Headache got better after taking dose a sumutriptan. However, during MRI scan earlier today, headache returned Mostly localized to nasal/frontal area and aggravated by noise. She denies N/V/F/C. Vital Sign Vital Signs Vital Signs Date Time Temp Pulse Resp B/P (MAP) Pulse Ox O2 Delivery O2 Flow Rate FiO2 01/20/19 11:00 97.8 75 18 110/53 (72) 96 Room Air 97.8 Physical Exam PHYSICAL EXAM GENERAL: Propped up in bed, alert, NAD HEENT: Pupils equally round, reactive. Normal conjunctivae. Oral cavity: Pharynx pink and moist. Mild frontal and ethmoid sinus tenderness. NECK: Supple. No nuchal rigidity. LUNGS: Clear to auscultation. HEART: S1 and S2. ABDOMEN: Soft and nontender with bowel sounds present. EXTREMITIES: No gross edema or cyanosis. SKIN: Warm without generalized rash. NEUROLOGIC: Alert and oriented x 3. Moves all extremities. Labs Lab Laboratory Tests Test 01/20/19 04:05 White Blood Count 5.1 x10^3/uL (4.0-11.0) Red Blood Count 3.60 x10^6/uL (3.50-5.40) Hemoglobin 8.5 g/dL (12.0-15.5) Hematocrit 27.6 % (36.0-47.0) Mean Corpuscular Volume 77 fL (79-100) Mean Corpuscular Hemoglobin 24 pg (25-35) Mean Corpuscular Hemoglobin Concent 31 g/dL (31-37) Red Cell Distribution Width 15.6 % (11.5-14.5) Platelet Count 234 x10^3/uL (140-400) Neutrophils (%) (Auto) 45 % (31-73) Lymphocytes (%) (Auto) 44 % (24-48) Monocytes (%) (Auto) 8 % (0-9) Eosinophils (%) (Auto) 2 % (0-3) Basophils (%) (Auto) 1 % (0-3) Neutrophils # (Auto) 2.3 x10^3uL (1.8-7.7) Lymphocytes # (Auto) 2.2 x10^3/uL (1.0-4.8) Monocytes # (Auto) 0.4 x10^3/uL (0.0-1.1) Eosinophils # (Auto) 0.1 x10^3/uL (0.0-0.7) Basophils # (Auto) 0.1 x10^3/uL (0.0-0.2) Sodium Level 142 mmol/L (136-145) Potassium Level 4.2 mmol/L (3.5-5.1) Chloride Level 108 mmol/L (98-107) Carbon Dioxide Level 25 mmol/L (21-32) Anion Gap 9 (6-14) Blood Urea Nitrogen 14 mg/dL (7-20) Creatinine 0.7 mg/dL (0.6-1.0) Estimated GFR (Cockcroft-Gault) 88.6 BUN/Creatinine Ratio 20 (6-20) Glucose Level 98 mg/dL (70-99) Calcium Level 8.7 mg/dL (8.5-10.1) Total Bilirubin 0.1 mg/dL (0.2-1.0) Aspartate Amino Transf (AST/SGOT) 21 U/L (15-37) Alanine Aminotransferase (ALT/SGPT) 16 U/L (14-59) Alkaline Phosphatase 68 U/L (46-116) Total Protein 5.7 g/dL (6.4-8.2) Albumin 2.9 g/dL (3.4-5.0) Albumin/Globulin Ratio 1.0 (1.0-1.7) 1. No evidence for acute or subacute ischemia. 2. Moderate mucosal thickening of the left sphenoid sinus with air-fluid level. Correlate with any signs and symptoms of sinusitis. 3. There is a suspected calcified extra-axial mass along the right posterior falx measuring 11 x 5 mm which may represent dural based calcification versus calcified meningioma. 4. 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 1. No evidence for aneurysm, some malformation or high-grade stenosis/large vessel occlusion involving the [place]. Mild to moderate intracranial atherosclerotic changes are present as detailed above. 2. No definite evidence for venous sinus thrombosis. 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 Objective Assessment Severe headache with photophobia -LP: CSF colorless, clear, WBC 4, glucose 57, TP 30.8. No organisms Sphenoid sinus disease on CT PCN allergy, reaction unknown, occurred in infancy Asthma Plan Plan of Care Continue to observe off antibiotics Cont supportive care call us with any questions Patient seen, examined, I agree with above Assessment and plan by SENIOR [employer]ERING. CHAD MENSAH APRN January 20, 2019 12:52 POOJA VICTOR MD January 20, 2019 13:42
[2019-01-20 15:00] VITALS: BP 126/72
--- NOTE | 2019-01-20 18:00 | NUR ---
Discharge Note: ESTEBAN FIGUEROA [facility] Discharge instructions and discharge home medications reviewed with Patient and a copy given. All questions have been answered and understanding verbalized. The following instructions and handouts were given: follow up instructions, prescriptions for imitrex and percocet Discontinued lines and drains: 20 gauge right AC, tip intact. patient tolerated well. Patient discharged to home with self care via family.
== END 2019-01-20 18:24 | disposition home or self-care (01) | DRG 103 ==
LOC: 6 SOUTH 02:23
PROVIDERS: ADMIT Internal Medicine; ATTEND Internal Medicine
PROC: 009U3ZX Drainage of Spinal Canal, Percutaneous Approach, Diagnostic (ICD-10-PCS; principal; 2019-01-19)
DX: G43.909 Migraine, unspecified, not intractable, without status migrainosus (principal); J34.2 Deviated nasal septum; J45.909 Unspecified asthma, uncomplicated; Z82.49 Family history of ischemic heart disease and other diseases of the circulatory system; Z88.0 Allergy status to penicillin; Z98.1 Arthrodesis status; Z87.442 Personal history of urinary calculi; Z87.440 Personal history of urinary (tract) infections
CPT/HCPCS: 36415; 70496; 70498; 70544; 70551; 80053; 85025; J0696; J3010; J3030; J3370; J7040; Q9967